=== PATIENT | male | born 1990 | race Caucasian/White ===

== ENCOUNTER 2016-12-12 02:05 | Emergency (ER) | payer SELFPAY ==
[2016-12-12 02:09] VITALS: BP 154/92; PULSE 90; O2SAT 96
[2016-12-12] MEDS ORDERED: TORAdol 30 mg Injection IM ONE (02:14)
[2016-12-12] MEDS ORDERED: NORCO 5/325 MG PO ONE (02:15)
[2016-12-12] MEDS ORDERED: KEFLEX 250 MG PO ONE (02:15)
[2016-12-12] MEDS ORDERED: TORAdol 30 mg Injection ONE (02:18)
[2016-12-12] MEDS ORDERED: KEFLEX 500 MG ONE (02:18)
[2016-12-12] MEDS ORDERED: NORCO 5/325 MG ONE (02:19)
--- NOTE | 2016-12-12 02:22 | ERPHSYRPT ---
- History of Present Illness Time Seen by Provider: 12/12/16 02:10 Source: patient Exam Limitations: no limitations Patient Subjective Stated Complaint: pt is co pain from broken top right molar -he has history of dental caries -states tonight he bit down on a peice of chicken and "shattered the tooth" no releif with advil and motrin Triage Nursing Assessment: pt is awake and alert and able to answer questions - is moaning and holding his right face Physician History: FOR THE PAST 3 DAYS PT HAS HAD RIGHT MOLAR PAIN AND FRACTURED THE TOOTH. PT DENIES FEVER, COUGH, SHORTNESS OF AIR. Allergies/Adverse Reactions: No Known Drug Allergies Allergy (Verified 12/12/16 02:13) Home Medications: No Home Meds 1 ea UD 03/09/16 [History] Hx Tetanus, Diphtheria Vaccination/Date Given: No Hx Influenza Vaccination/Date Given: No Hx Pneumococcal Vaccination/Date Given: No - Review of Systems Constitutional: No Fever Ears, Nose, & Throat: Mouth Pain, Mouth Swelling Respiratory: No Dyspnea Abdominal/Gastrointestinal: No Vomiting All Other Systems: Reviewed and Negative - Past Medical History Pertinent Past Medical History: No Neurological History: No Pertinent History ENT History: No Pertinent History Cardiac History: No Pertinent History Respiratory History: No Pertinent History Endocrine Medical History: No Pertinent History Musculoskeletal History: No Pertinent History GI Medical History: No Pertinent History History: No Pertinent History Psycho-Social History: No Pertinent History Male Reproductive Disorders: No Pertinent History Other Medical History: HYDROCELE - Past Surgical History Past Surgical History: Yes Neuro Surgical History: No Pertinent History Cardiac: No Pertinent History Respiratory: No Pertinent History Gastrointestinal: Hernia Repair Genitourinary: No Pertinent History Musculoskeletal: No Pertinent History Male Surgical History: No Pertinent History - Social History Smoking Status: Current every day smoker How long have you smoked: 6yrs Exposure to second hand smoke: Yes Drug Use: marijuana Patient Lives Alone: No Significant Family History: no pertinent family hx - Nursing Vital Signs Nursing Vital Signs: Initial Vital Signs Temperature 97.6 F Temperature Source Oral Pulse Rate 90 Respiratory Rate 22 Blood Pressure [Right Arm] 154/92 Pain Intensity 10 - Physical Exam General Appearance: alert Eye Exam: PERRL/EOMI, eyes nml inspection Ears, Nose, Throat Exam: moist mucous membranes, other (A RIGHT MAXILLARY MOLAR HAS SURROUNDING ERYTHEMATOUS, EDEMATOUS AND TENDER GUM.) Neck Exam: normal inspection Respiratory Exam: lungs clear Cardiovascular Exam: normal heart sounds Gastrointestinal/Abdomen Exam: normal bowel sounds Back Exam: normal range of motion Extremity Exam: No swelling Neurologic Exam: alert, cooperative Skin Exam: warm, dry SpO2 Interpretation: normal SpO2: 96 Oxygen Delivery: Room Air - Course Nursing assessment & vital signs reviewed: Yes - Departure Time of Disposition: 02:22 Departure Disposition: Home Clinical Impression: RIGHT MAXILLARY MOLAR ABSCESS Condition: Fair Critical Care Time: No Instructions: Tooth Abscess Additional Instructions: FOLLOW UP WITH DENTIST LATER TODAY. Prescriptions: Naproxen [Naprosyn] 500 mg PO [id number] PRN #20 tablet PRN Reason: Pain Cephalexin Monohydrate [Keflex] 500 mg PO TID #30 capsule
== END 2016-12-12 02:28 | disposition home or self-care (01) ==
LOC: ED 02:05
DX: K04.7 Periapical abscess without sinus (principal)
CPT/HCPCS: 96372; 99282; J1885

== ENCOUNTER 2017-07-06 04:33 | Emergency (ER) | payer OTHER ==
[2017-07-06] MEDS ORDERED: TORAdol 30 mg Injection IM ONE (04:37)
[2017-07-06] MEDS ORDERED: Rocephin 1000 MG INJ IM ONE (04:37)
[2017-07-06] MEDS ORDERED: NORCO 5/325 MG PO ONE (04:38)
[2017-07-06 04:42] VITALS: BP 136/76; PULSE 95; O2SAT 96
[2017-07-06] MEDS ORDERED: TORAdol 30 mg Injection ONE (04:43)
[2017-07-06] MEDS ORDERED: NORCO 5/325 MG ONE (04:44)
[2017-07-06] MEDS ORDERED: Rocephin 1000 MG INJ ONE (04:44)
[2017-07-06] MEDS ORDERED: XYLOCAINE 1% HCL 20 ML MDV ONE (04:44)
--- NOTE | 2017-07-06 04:44 | ERPHSYRPT ---
- History of Present Illness Time Seen by Provider: 07/06/17 04:33 Source: patient Exam Limitations: no limitations Physician History: FOR THE PAST WEEK PT HAS HAD A RIGHT UPPER TOOTHACHE AND RIGHT FACIAL SWELLING; FOR THE PAST 3 DAYS DIARRHEA; VOMITING X1 TONIGHT. PT DENIES FEVER, CHEST PAIN, SHORTNESS OF AIR. Allergies/Adverse Reactions: No Known Drug Allergies Allergy (Verified 12/12/16 02:13) Home Medications: No Home Meds [No Home Meds] 1 ea UD 03/09/16 [History] Hx Tetanus, Diphtheria Vaccination/Date Given: No Hx Influenza Vaccination/Date Given: No Hx Pneumococcal Vaccination/Date Given: No - Review of Systems Constitutional: No Fever Ears, Nose, & Throat: Mouth Pain Respiratory: No Dyspnea Cardiac: No Chest Pain Abdominal/Gastrointestinal: Vomiting, Diarrhea All Other Systems: Reviewed and Negative - Past Medical History Pertinent Past Medical History: No Neurological History: No Pertinent History ENT History: No Pertinent History Cardiac History: No Pertinent History Respiratory History: No Pertinent History Endocrine Medical History: No Pertinent History Musculoskeletal History: No Pertinent History GI Medical History: No Pertinent History History: No Pertinent History Psycho-Social History: No Pertinent History Male Reproductive Disorders: No Pertinent History Other Medical History: HYDROCELE - Past Surgical History Past Surgical History: Yes Neuro Surgical History: No Pertinent History Cardiac: No Pertinent History Respiratory: No Pertinent History Gastrointestinal: Hernia Repair Genitourinary: No Pertinent History Musculoskeletal: No Pertinent History Male Surgical History: No Pertinent History - Social History Smoking Status: Current every day smoker How long have you smoked: 6yrs Exposure to second hand smoke: Yes Drug Use: marijuana Patient Lives Alone: No Significant Family History: no pertinent family hx - Physical Exam General Appearance: alert Eye Exam: bilateral eye: PERRL, EOMI Ear Exam: bilateral ear: TM normal Nasal Exam: normal inspection Throat Exam: maxillary swelling (MILD SWELLING, TENDERNESS AND ERYTHEMA OF THE GUM SURROUNDING A RIGHT MAXILLARY MOLAR.), moist mucus membranes Neck Exam: normal inspection Cardiovascular/Respiratory Exam: normal breath sounds, heart sounds normal Abdominal Exam: soft (B.S. NORMAL) Neurologic Exam: alert, cooperative Skin Exam: warm, dry - Course Nursing assessment & vital signs reviewed: Yes - Departure Time of Disposition: 04:44 Departure Disposition: Home Clinical Impression: TOOTH ABSCESS Condition: Stable Critical Care Time: No Referrals: DOCTOR,NO FAMILY [Primary Care Provider] - Instructions: Tooth Abscess Additional Instructions: FOLLOW UP WITH DENTIST TOMORROW. Prescriptions: Naproxen [Naprosyn] 500 mg PO [id number] PRN #20 tablet PRN Reason: Pain Cephalexin Monohydrate [Keflex] 500 mg PO TID #30 capsule
== END 2017-07-06 05:10 | disposition home or self-care (01) ==
LOC: ED 04:33
DX: K04.7 Periapical abscess without sinus (principal)
CPT/HCPCS: 96372; 99284; J0696; J1885; A9270-GY

== ENCOUNTER 2018-03-12 10:09 | Emergency (ER) | payer OTHER ==
[2018-03-12 10:17] VITALS: O2SAT 98
--- NOTE | 2018-03-12 10:27 | ERPHSYRPT ---
- History of Present Illness Time Seen by Provider: 03/12/18 10:18 Source: patient Exam Limitations: no limitations Patient Subjective Stated Complaint: pt reports having right hand smashed at work-reports severe pain-denies numbness or tinlging Triage Nursing Assessment: pt pink warm and dry-anxious upon arrival-swelling and bruising noted to right hand-radial pulse present-bruising under nail beds noted to all fingers Physician History: Pt states, he accidentally dropped heavy board on his right hand at work prior to driving here. He denies other injury or complaints, he is up to date with Tetanus immunization. Occurred: just prior to arrival Method of Injury: direct blow Quality: constant Severity of Pain-Max: moderate Severity of Pain-Current: moderate Extremities Pain Location: 2nd finger: right, 3rd finger: right, 4th finger: right Modifying Factors: Improves With: nothing Associated Symptoms: none Allergies/Adverse Reactions: No Known Drug Allergies Allergy (Verified 03/12/18 10:17) Home Medications: No Home Meds [No Home Meds] 1 ea UD 03/09/16 [History] Hx Tetanus, Diphtheria Vaccination/Date Given: No Hx Influenza Vaccination/Date Given: No Hx Pneumococcal Vaccination/Date Given: No Immunizations Up to Date: Yes - Review of Systems Constitutional: No Symptoms Musculoskeletal: Other (pain and swelling of the right 2-3-4th finger end phalanges.) All Other Systems: Reviewed and Negative - Past Medical History Pertinent Past Medical History: No Neurological History: No Pertinent History ENT History: No Pertinent History Cardiac History: No Pertinent History Respiratory History: No Pertinent History Endocrine Medical History: No Pertinent History Musculoskeletal History: No Pertinent History GI Medical History: No Pertinent History History: No Pertinent History Psycho-Social History: No Pertinent History Male Reproductive Disorders: No Pertinent History Other Medical History: HYDROCELE - Past Surgical History Past Surgical History: Yes Neuro Surgical History: No Pertinent History Cardiac: No Pertinent History Respiratory: No Pertinent History Gastrointestinal: Hernia Repair Genitourinary: No Pertinent History Musculoskeletal: No Pertinent History Male Surgical History: No Pertinent History - Social History Smoking Status: Current some day smoker How long have you smoked: yrs Exposure to second hand smoke: Yes Drug Use: none Patient Lives Alone: No Significant Family History: no pertinent family hx - Nursing Vital Signs Nursing Vital Signs: Initial Vital Signs Temperature 97.8 F 03/12/18 10:14 Pulse Rate 89 04/23/18 10:14 Respiratory Rate 18 03/12/18 10:14 Blood Pressure 135/94 03/12/18 10:14 O2 Sat by Pulse Oximetry 98 03/12/18 10:14 Pain Scale Pain Intensity 5 - Physical Exam General Appearance: no apparent distress Eyes, Ears, Nose, Throat Exam: normal ENT inspection Neck Exam: normal inspection Cardiovascular/Respiratory Exam: chest non-tender, normal breath sounds, regular rate/rhythm Abdominal Exam: non-tender Back Exam: normal inspection Shoulder Exam: normal inspection Hand Exam: soft tissue tenderness (2-3-4th finges nail beds with small, proximal , old subungual hematomas ( old injury), slight, diffse swelling and tenderness of the end phalanges of these fingers, small (2-3 mm) blow-out laceration on the radial aspect of the 4th finger end phalanx. Good distal circulation and capillary refills.) Neuro/Tendon Exam: normal sensation, normal motor functions Mental Status Exam: alert, oriented x 3 Skin Exam: normal color, warm, dry SpO2 Interpretation: normal SpO2: 98 Oxygen Delivery: Room Air - Course Nursing assessment & vital signs reviewed: Yes - Radiology Exams Hand X-ray Interpretation: Reviewed by me, Negative Ordered Tests: Active Orders 24 hr Category Date Time Status HAND (MINIMUM 3 VIEWS) Stat Exams 03/12/18 10:21 Completed - Progress Progress: unchanged Progress Note: 03/12/18 10:57 Pt has been stable, no severe pain or distress, he was administered 400mg Motrin , released back to work, advised to protect fingers, keep elevated, when resting , and return if severe pain or swelling. Counseled pt/family regarding: diagnosis, rad results - Departure Time of Disposition: 10:58 Departure Disposition: Home Clinical Impression: Contusion of hand, right Qualifiers: Encounter type: initial encounter Qualified Code(s): S60.221A - Contusion of right hand, initial encounter Condition: Stable Critical Care Time: No Referrals: DOCTOR,NO FAMILY [Primary Care Provider] - Instructions: Common Finger Injuries Additional Instructions: Keep hand elevated, when resting, apply ice to swelling, return if severe pain, swelling!
--- NOTE | 2018-03-12 10:44 | XRAY ---
Indication: 3-5 finger pain following injury. Comparison: April 12, 2015. 3 views of the right hand obtained. Again no bony, articular, or soft tissue abnormalities.
[2018-03-12] MEDS ORDERED: MOTRIN 400 MG PO ONE (10:56)
[2018-03-12] MEDS ORDERED: MOTRIN 400 MG ONE (11:00)
[2018-03-12 11:06] VITALS: BP 118/67; PULSE 84
== END 2018-03-12 11:06 | disposition home or self-care (01) ==
LOC: ED 10:09
DX: S60.221A Contusion of right hand, initial encounter (principal); W20.8XXA Other cause of strike by thrown, projected or falling object, initial encounter; Y99.0 Civilian activity done for income or pay
CPT/HCPCS: 73130; 99283; A9270-GY

== ENCOUNTER 2018-03-14 10:57 | Emergency (ER) | payer OTHER ==
[2018-03-14 11:06] VITALS: O2SAT 98
--- NOTE | 2018-03-14 11:20 | ERPHSYRPT ---
- History of Present Illness Time Seen by Provider: 03/14/18 11:11 Source: patient Exam Limitations: no limitations Patient Subjective Stated Complaint: Pt states "I smashed my finger with wood at work. Just file it under my insurance, not workmans comp." Triage Nursing Assessment: Pt alert and oriented X 3, skin pwd Pt ambulates with an upright steady gait, able to speak in clear full sentences. PT fingernails on right hand has dried blood under them, index, middle, and ring fingers swollen. Pt states he injured same hand a couple of days ago at work as well. Physician History: Pt states, he "smashed" his right ring finger with a board at work this morning. He had very similar injury 2 days ago, treated here, did not have any fractures, and sustained a small, superficial laceration on the medial aspect on his right ring finger on the end phalanx. He denies other injury or complaints. Occurred: just prior to arrival Method of Injury: direct blow Quality: constant Severity of Pain-Max: moderate Severity of Pain-Current: moderate Extremities Pain Location: 4th finger: right Modifying Factors: Improves With: movement Associated Symptoms: none Allergies/Adverse Reactions: No Known Drug Allergies Allergy (Verified 03/12/18 10:17) Home Medications: No Home Meds [No Home Meds] 1 ea UD 03/09/16 [History] Hx Tetanus, Diphtheria Vaccination/Date Given: Yes Hx Influenza Vaccination/Date Given: No Hx Pneumococcal Vaccination/Date Given: No Immunizations Up to Date: Yes - Review of Systems Constitutional: No Symptoms Musculoskeletal: Other (right ring finger painful) All Other Systems: Reviewed and Negative - Past Medical History Pertinent Past Medical History: No Neurological History: No Pertinent History ENT History: No Pertinent History Cardiac History: No Pertinent History Respiratory History: No Pertinent History Endocrine Medical History: No Pertinent History Musculoskeletal History: No Pertinent History GI Medical History: No Pertinent History History: No Pertinent History Psycho-Social History: No Pertinent History Male Reproductive Disorders: No Pertinent History Other Medical History: HYDROCELE - Past Surgical History Past Surgical History: Yes Neuro Surgical History: No Pertinent History Cardiac: No Pertinent History Respiratory: No Pertinent History Gastrointestinal: Hernia Repair Genitourinary: No Pertinent History Musculoskeletal: No Pertinent History Male Surgical History: No Pertinent History - Social History Smoking Status: Current every day smoker How long have you smoked: years Exposure to second hand smoke: Yes Drug Use: none Patient Lives Alone: No Significant Family History: no pertinent family hx - Nursing Vital Signs Nursing Vital Signs: Initial Vital Signs Temperature 97.8 F 03/14/18 11:01 Pulse Rate 88 03/14/18 11:01 Respiratory Rate 18 03/14/18 11:01 Blood Pressure 137/73 03/14/18 11:01 O2 Sat by Pulse Oximetry 98 03/14/18 11:01 Pain Scale Pain Intensity 10 - Physical Exam General Appearance: no apparent distress Eyes, Ears, Nose, Throat Exam: normal ENT inspection Neck Exam: normal inspection, non-tender Cardiovascular/Respiratory Exam: chest non-tender, normal breath sounds, regular rate/rhythm, heart sounds normal Abdominal Exam: non-tender, soft Back Exam: normal inspection, No CVA tenderness Shoulder Exam: normal inspection Hand Exam: soft tissue tenderness (right long fingers with old subungual hematomas, no elevaton or serious nailbed injury, small (5 mm) superficial laceration on the radial aspect of the 4th finger end phalanx is healing, the end phalanx is swollen, tender, but no deformity. apparently he smashed here today with the board. ), swelling Neuro/Tendon Exam: normal motor functions Mental Status Exam: alert, oriented x 3, cooperative Skin Exam: normal color, warm, dry SpO2 Interpretation: normal SpO2: 98 Oxygen Delivery: Room Air - Course Nursing assessment & vital signs reviewed: Yes - Radiology Exams Hand X-ray Interpretation: Reviewed by me, No Fracture, Nml Alignment Ordered Tests: Active Orders 24 hr Category Date Time Status FINGER(S) Stat Exams 03/14/18 11:21 Completed - Progress Progress: unchanged Progress Note: 03/14/18 11:44 I informed patient about X ray report, instructed to rest today, keep his hand elevated, and apply ice onto swelling! - Departure Time of Disposition: 11:45 Departure Disposition: Home Clinical Impression: Finger contusion Qualifiers: Encounter type: initial encounter Finger: ring finger Damage to nail status: without damage Laterality: right Qualified Code(s): S60.041A - Contusion of right ring finger without damage to nail, initial encounter Condition: Stable Critical Care Time: No Referrals: DOCTOR,NO FAMILY [Primary Care Provider] - Instructions: Finger Sprain (DC) Additional Instructions: Rest with elevated hand, apply ice to swelling!
--- NOTE | 2018-03-14 11:30 | XRAY ---
Indication: Crush injury. Comparison: None 3 views of the right 4th finger obtained. No bony, articular, or soft tissue abnormalities.
[2018-03-14 11:50] VITALS: BP 132/76; PULSE 82
== END 2018-03-14 11:50 | disposition home or self-care (01) ==
LOC: ED 10:57
DX: S60.041A Contusion of right ring finger without damage to nail, initial encounter (principal); W23.0XXA Caught, crushed, jammed, or pinched between moving objects, initial encounter
CPT/HCPCS: 73140; 99283

== ENCOUNTER 2018-04-15 10:01 | Emergency (ER) | payer OTHER ==
[2018-04-15] MEDS ORDERED: MOTRIN 600 MG PO ONE (10:55)
--- NOTE | 2018-04-15 11:02 | ERPHSYRPT ---
- History of Present Illness Time Seen by Provider: 04/15/18 10:55 Source: patient Exam Limitations: no limitations Patient Subjective Stated Complaint: PT HERE FOR TOOTH ACHE AND SWELLING TO LOWER RIGHT GUM FOR A COUPLE DAYS, HAS APT WED WITH DENTIST Triage Nursing Assessment: PT HAS DENTAL CARIES AND SWELLING TO LOWER RIGHT GUM Physician History: patient with toothache and swelling right lower few days; prior hx; no fever; no difficulty breathing or swallowing; no trauma; has an appt with DDS next week Timing/Duration: day(s) (2-3 days onset) Severity: moderate Modifying Factors: Improves With: eating, movement Associated Symptoms: denies symptoms Allergies/Adverse Reactions: No Known Drug Allergies Allergy (Verified 04/15/18 10:45) Home Medications: No Home Meds [No Home Meds] 1 [facility] 03/09/16 [History] Hx Tetanus, Diphtheria Vaccination/Date Given: Yes Hx Influenza Vaccination/Date Given: Yes Hx Pneumococcal Vaccination/Date Given: No Immunizations Up to Date: Yes - Review of Systems Constitutional: No Symptoms Eyes: No Symptoms Ears, Nose, & Throat: Mouth Pain (lower right tooth), Mouth Swelling (lower right), No Ear Pain, No Nose Discharge, No Epistaxis, No Throat Swelling, No Hoarse, No Painful Swallowing Respiratory: No Cough, No Dyspnea, No Wheezing Cardiac: No Chest Pain, No Edema, No Palpitations Abdominal/Gastrointestinal: Nausea, No Abdominal Pain, No Vomiting, No Diarrhea Genitourinary Symptoms: No Symptoms Musculoskeletal: No Symptoms Skin: No Symptoms Neurological: No Symptoms Psychological: No Symptoms - Past Medical History Pertinent Past Medical History: No Neurological History: No Pertinent History ENT History: No Pertinent History Cardiac History: No Pertinent History Respiratory History: No Pertinent History Endocrine Medical History: No Pertinent History Musculoskeletal History: No Pertinent History GI Medical History: No Pertinent History History: No Pertinent History Psycho-Social History: No Pertinent History Male Reproductive Disorders: No Pertinent History Other Medical History: HYDROCELE - Past Surgical History Past Surgical History: Yes Neuro Surgical History: No Pertinent History Cardiac: No Pertinent History Respiratory: No Pertinent History Gastrointestinal: Hernia Repair Genitourinary: No Pertinent History Musculoskeletal: No Pertinent History Male Surgical History: No Pertinent History - Social History Smoking Status: Current every day smoker How long have you smoked: years Exposure to second hand smoke: Yes Alcohol Use: Socially Drug Use: none Patient Lives Alone: No Significant Family History: no pertinent family hx - Nursing Vital Signs Nursing Vital Signs: Initial Vital Signs Temperature 97.2 F 04/15/18 10:39 Pulse Rate 69 04/15/18 10:39 Respiratory Rate 16 04/15/18 10:39 Blood Pressure 134/78 04/15/18 10:39 O2 Sat by Pulse Oximetry 95 04/15/18 10:39 Pain Scale Pain Intensity 8 - Physical Exam General Appearance: moderate distress, alert Eye Exam: PERRL/EOMI, eyes nml inspection Ears, Nose, Throat Exam: normal ENT inspection, TMs normal, pharynx normal, moist mucous membranes, other (caries lowr right post; slight swelling gum; tongue midline; no elevation; TMJ ok) Neck Exam: normal inspection, non-tender, supple, full range of motion, lymphadenopathy (ant cervical right only), No meningismus Respiratory Exam: normal breath sounds, lungs clear, airway intact, No chest tenderness, No respiratory distress Cardiovascular Exam: regular rate/rhythm, normal heart sounds, normal peripheral pulses, capillary refill <2 sec, No murmur Gastrointestinal/Abdomen Exam: soft, normal bowel sounds, No tenderness, No guarding, No organomegaly Rectal Exam: deferred Back Exam: normal inspection, normal range of motion, No CVA tenderness Extremity Exam: normal inspection, normal range of motion, No pedal edema Neurologic Exam: alert, oriented x 3, cooperative, marble polisher II-XII nml as tested, nml station & gait Skin Exam: normal color, warm, dry, No rash Lymphatic Exam: adenopathy (ant cervical right only) SpO2 Interpretation: normal SpO2: 95 Oxygen Delivery: Room Air - Course Nursing assessment & vital signs reviewed: Yes Ordered Tests: Medication Summary Generic Name Dose Route Start Last Admin Trade Name Freq PRN Reason Stop Dose Admin Ibuprofen 600 mg 04/15/18 10:55 Motrin 600 Mg PO 04/15/18 10:56 STAT ONE - Progress Progress Note: 04/15/18 10:59 meds given; instrcutions given Counseled pt/family regarding: diagnosis, need for follow-up - Departure Time of Disposition: 11:15 Departure Disposition: Home Clinical Impression: Dental caries Condition: Stable Critical Care Time: No Referrals: DOCTOR,NO FAMILY [Primary Care Provider] - Instructions: Dental Pain Additional Instructions: Follow-up with family doctor as directed. Call for appointment. Return if any problems. If you smoke please stop. Call or follow up with your family doctor for assistance if you need it to stop. Please wear your seatbelt when driving. Have a nice day. Thank you for allowing us to participate in your care today. :o) Dr Erich Hinds Prescriptions: Cephalexin Mh 250 mg [Keflex 250 mg] 250 mg PO QID #40 capsule Naproxen Sodium [Anaprox Ds] 550 mg PO Q6-8HPRN PRN #14 tablet PRN Reason: Pain
[2018-04-15] MEDS ORDERED: MOTRIN 600 MG ONE (11:04)
[2018-04-15 11:23] VITALS: BP 124/93; PULSE 80; O2SAT 99
== END 2018-04-15 11:23 | disposition home or self-care (01) ==
LOC: ED 10:01
DX: K02.9 Dental caries, unspecified (principal)
CPT/HCPCS: 99283; A9270-GY

== ENCOUNTER 2018-09-19 08:27 | Emergency (ER) | payer OTHER ==
[2018-09-19] MEDS ORDERED: Adacel Vial IM ONE ×2 (08:35→09:15)
[2018-09-19] MEDS ORDERED: KEFZOL 1 GM/50 ML PREMIX** 1 GM/50 ML IVPB IV ONE (08:36)
[2018-09-19] MEDS ORDERED: TENIVAC VIAL IM ONE ×2 (08:36→08:44)
[2018-09-19 08:38] VITALS: O2SAT 98
[2018-09-19] MEDS ORDERED: MORPHINE SULFATE 2 MG INJ IM ONE (08:40)
[2018-09-19] MEDS ORDERED: MORPHINE SULFATE 2 MG INJ ONE (08:43)
[2018-09-19] MEDS ORDERED: Ativan 2 MG/1 ML VIAL IM ONE (08:45)
[2018-09-19] MEDS ORDERED: Ativan 2 MG/1 ML VIAL ONE (08:46)
--- NOTE | 2018-09-19 08:53 | ERPHSYRPT ---
- History of Present Illness Source: patient Exam Limitations: no limitations Patient Subjective Stated Complaint: Pt states "I was at work and my glove got caught in a conveyer and pulled my hand under a board and smashed it." Triage Nursing Assessment: Pt alert and oriented X 3, skin pwd. Pt ambulates with an upright steady gait, able to speak in clear full sentences. PT holding his right hand in his left. Middle finger on right hand has laceration down the tip approx 2 cm, bleeding controlled. Timing/Duration: today Quality: burning, painful Severity: severe Location: hands (middle right finger) Associated Symptoms: other (Severe pain in the tip of the middle right finger, with bleeding, and trauma.) Allergies/Adverse Reactions: No Known Drug Allergies Allergy (Verified 04/15/18 10:45) Home Medications: No Home Meds [No Home Meds] 1 [facility] 03/09/16 [History] Hx Tetanus, Diphtheria Vaccination/Date Given: Yes Hx Influenza Vaccination/Date Given: No Hx Pneumococcal Vaccination/Date Given: No Immunizations Up to Date: Yes - Review of Systems Constitutional: No Fever, No Chills Eyes: No Symptoms Ears, Nose, & Throat: No Symptoms Respiratory: No Cough, No Dyspnea Cardiac: No Chest Pain, No Edema, No Syncope Abdominal/Gastrointestinal: No Abdominal Pain, No Nausea, No Vomiting, No Diarrhea Genitourinary Symptoms: No Dysuria Musculoskeletal: Other (Pain in middle finger on right) Skin: Other (tip of middle finger on right with bleeding) Neurological: No Dizziness, No Focal Weakness, No Sensory Changes Psychological: No Symptoms Endocrine: No Symptoms All Other Systems: Reviewed and Negative - Past Medical History Pertinent Past Medical History: No Neurological History: No Pertinent History ENT History: No Pertinent History Cardiac History: No Pertinent History Respiratory History: No Pertinent History Endocrine Medical History: No Pertinent History Musculoskeletal History: No Pertinent History GI Medical History: No Pertinent History History: No Pertinent History Psycho-Social History: No Pertinent History Male Reproductive Disorders: No Pertinent History Other Medical History: HYDROCELE - Past Surgical History Past Surgical History: Yes Neuro Surgical History: No Pertinent History Cardiac: No Pertinent History Respiratory: No Pertinent History Gastrointestinal: Hernia Repair Genitourinary: No Pertinent History Musculoskeletal: No Pertinent History Male Surgical History: No Pertinent History - Social History Smoking Status: Current every day smoker How long have you smoked: years Exposure to second hand smoke: Yes Alcohol Use: Socially Drug Use: none Patient Lives Alone: No Significant Family History: no pertinent family hx - Nursing Vital Signs Nursing Vital Signs: Initial Vital Signs Temperature 98.2 F 09/19/18 08:29 Pulse Rate 124 H 09/19/18 08:29 Respiratory Rate 24 09/19/18 08:29 Blood Pressure 155/103 09/19/18 08:29 O2 Sat by Pulse Oximetry 98 09/19/18 08:29 Pain Scale Pain Intensity 10 - Physical Exam General Appearance: severe distress, alert Eye Exam: PERRL/EOMI, eyes nml inspection Ears, Nose, Throat Exam: normal ENT inspection, pharynx normal, moist mucous membranes Neck Exam: normal inspection, non-tender, supple, full range of motion Respiratory Exam: normal breath sounds, lungs clear, No respiratory distress Cardiovascular Exam: regular rate/rhythm, normal heart sounds Gastrointestinal/Abdomen Exam: soft, mass, No tenderness Back Exam: normal inspection, normal range of motion, No CVA tenderness, No vertebral tenderness Extremity Exam: lacerations (tissue of R middle finger is mangled, bleeding from tissue and under the nail.) Neurologic Exam: alert, oriented x 3, cooperative, normal mood/affect, sensation nml, No motor deficits Skin Exam: laceration (As described in extremities exam) SpO2: 98 Oxygen Delivery: Room Air Procedures - Laceration/Wound Repair Right Upper Finger Wound Location: Right, hand (and tissue of middle finger is mangled.) Wound's Depth, Shape: nail-avulsed Wound Explored: no foreign body noted Irrigated: Yes Hibiclens Prep: Yes Wound Debrided: minimal Sterile Dressing Applied?: Yes Ordered Tests: Active Orders 24 hr Category Date Time Status Wound Care STAT Care 09/19/18 08:36 Active Alcohol [ETHYL ALCOHOL] Stat Lab 09/19/18 09:00 Completed Urine Triage Profile Stat Lab 09/19/18 08:53 Completed Medication Summary Discontinued Medications Generic Name Dose Route Start Last Admin Trade Name Freq PRN Reason Stop Dose Admin Cefazolin Sodium Confirm 09/19/18 09:08 Kefzol 1 Gm Administered 09/19/18 09:09 Dose 1 g .ROUTE .STK-MED ONE Cefazolin Sodium 1 g 09/19/18 09:13 09/19/18 09:19 Kefzol 1 Gm IM 09/19/18 09:14 1 g STAT ONE Administration Diphtheria/Tetanus/Acell Pertussis 0.5 ml 09/19/18 09:15 09/19/18 09:18 Adacel Vial IM 09/19/18 09:16 0.5 ml .ONCE ONE Administration Cefazolin Sodium/Dextrose 1 gm in 50 mls @ 100 mls/hr 09/19/18 08:36 09:15 Kefzol 1 Gm/50 Ml Premix IV 09/19/18 09:05 Not Given STAT ONE Lorazepam 2 mg 09/19/18 08:45 09/19/18 08:47 Ativan 2 Mg/1 Ml Vial IM 09/19/18 08:46 2 mg STAT ONE Administration Lorazepam Confirm 09/19/18 08:46 Ativan 2 Mg/1 Ml Vial Administered 09/19/18 08:47 Dose 2 mg .ROUTE .STK-MED ONE Morphine Sulfate 2 mg 09/19/18 08:40 09/19/18 08:47 Morphine Sulfate 2 Mg Inj IM 09/19/18 08:41 2 mg STAT ONE Administration Morphine Sulfate Confirm 09/19/18 08:43 Morphine Sulfate 2 Mg Inj Administered 09/19/18 08:44 Dose 2 mg .ROUTE .STK-MED ONE Lab/Rad Data: Laboratory Results 09/19/18 09/19/18 Range/Units 09:00 08:53 Urine Opiates Level NEGATIVE (NEGATIVE) Ur Methadone NEGATIVE (NEGATIVE) Urine Barbiturates NEGATIVE (NEGATIVE) Ur Phencyclidine (PCP) NEGATIVE (NEGATIVE) Urine Amphetamine NEGATIVE (NEGATIVE) U Benzodiazepine Level NEGATIVE (NEGATIVE) Urine Cocaine NEGATIVE (NEGATIVE) Urine Marijuana (THC) POSITIVE (NEGATIVE) Ethyl Alcohol < 10 (0-10) mg/dL - Progress Progress: unchanged Will see patient in: office Counseled pt/family regarding: need for follow-up (Follow up with Hand specialist Dr Zuleta in the office. Info and phone number was given to the pt. ) - Departure Time of Disposition: 10:17 Departure Disposition: Home Clinical Impression: Finger contusion Condition: Stable Critical Care Time: No Referrals: DOCTOR,NO FAMILY [Primary Care Provider] - Prescriptions: Hydrocodone Bit/Acetaminophen [Hydrocodon-Acetaminophen 5-325] 1 tab PO Q4- 6HPRN PRN #20 tablet MDD 6 PRN Reason: Moderate To Severe Pain
[2018-09-19] MEDS ORDERED: KEFZOL 1 GM ONE (09:08)
[2018-09-19 09:11] LABS: Amphetamine,Urine NEGATIVE (NEGATIVE); Barbiturate,Urine NEGATIVE (NEGATIVE); Benzodiazepine,Urine NEGATIVE (NEGATIVE); Cocaine,Urine NEGATIVE (NEGATIVE); Methadone,Urine NEGATIVE (NEGATIVE); Opiate,Urine NEGATIVE (NEGATIVE); PCP,Urine NEGATIVE (NEGATIVE); THC,Urine POSITIVE (NEGATIVE)
[2018-09-19] MEDS ORDERED: KEFZOL 1 GM IM ONE (09:13)
[2018-09-19 10:41] VITALS: BP 148/88; PULSE 98
== END 2018-09-19 10:47 | disposition home or self-care (01) ==
LOC: ED 08:27
PROC: 0JDJ3ZZ Extraction of Right Hand Subcutaneous Tissue and Fascia, Percutaneous Approach (ICD-10-PCS; principal; 2018-09-19)
DX: S60.031A Contusion of right middle finger without damage to nail, initial encounter (principal); W31.89XA Contact with other specified machinery, initial encounter; Y93.89 Activity, other specified; Y92.69 Other specified industrial and construction area as the place of occurrence of the external cause; Y99.0 Civilian activity done for income or pay; M79.644 Pain in right finger(s); Z72.0 Tobacco use; S61.302A Unspecified open wound of right middle finger with damage to nail, initial encounter
CPT/HCPCS: 11042; 36415; 80307; 90471; 90714; 90715; 96372; 99284; J0690; J2060; J2270; G0480

== ENCOUNTER 2018-11-22 12:15 | Emergency (ER) | payer MEDICAID, OTHER ==
--- NOTE | 2018-11-22 12:35 | ERPHSYRPT ---
- History of Present Illness Time Seen by Provider: 11/22/18 12:30 Source: patient Exam Limitations: no limitations Physician History: The patient is a 28-year-old male with a history of poor dentition complains of worsening left upper jaw pain for 2 days. Last night an abscess develop he popped. It is hurting. He comes in requesting antibiotics. He states that his life has been hectic the last 2 weeks and it culminated with the of his fourth child last night. He has a dentist in [place] but has not been able to contact the dentist yet. Timing/Duration: gradual onset, days (2) Severity: moderate ENT Location: dental Prearrival Treatment: no prearrival treatment Modifying Factors: Improves With: nothing Associated Symptoms: jaw pain, tooth pain Allergies/Adverse Reactions: No Known Drug Allergies Allergy (Verified 11/22/18 12:30) Hx Tetanus, Diphtheria Vaccination/Date Given: Yes Hx Influenza Vaccination/Date Given: No Hx Pneumococcal Vaccination/Date Given: No - Review of Systems Constitutional: No Symptoms Eyes: No Symptoms Ears, Nose, & Throat: Other (dental abscess) Respiratory: No Cough, No Dyspnea Cardiac: No Chest Pain, No Edema, No Syncope Abdominal/Gastrointestinal: No Abdominal Pain, No Nausea, No Vomiting, No Diarrhea Genitourinary Symptoms: No Dysuria Musculoskeletal: No Back Pain, No Neck Pain Skin: No Rash Neurological: No Dizziness, No Focal Weakness, No Sensory Changes Psychological: No Symptoms Endocrine: No Symptoms Hematologic/Lymphatic: No Symptoms Immunological/Allergic: No Symptoms All Other Systems: Reviewed and Negative - Past Medical History Pertinent Past Medical History: No Neurological History: No Pertinent History ENT History: No Pertinent History Cardiac History: No Pertinent History Respiratory History: No Pertinent History Endocrine Medical History: No Pertinent History Musculoskeletal History: No Pertinent History GI Medical History: No Pertinent History History: No Pertinent History Psycho-Social History: No Pertinent History Male Reproductive Disorders: No Pertinent History Other Medical History: HYDROCELE - Past Surgical History Past Surgical History: Yes Neuro Surgical History: No Pertinent History Cardiac: No Pertinent History Respiratory: No Pertinent History Gastrointestinal: Hernia Repair Genitourinary: No Pertinent History Musculoskeletal: No Pertinent History Male Surgical History: No Pertinent History - Social History Smoking Status: Current every day smoker How long have you smoked: years Exposure to second hand smoke: Yes Alcohol Use: Socially Drug Use: none Patient Lives Alone: No Significant Family History: no pertinent family hx - Physical Exam General Appearance: no apparent distress, alert Eye Exam: bilateral eye: PERRL Ear Exam: bilateral ear: auricle normal Nasal Exam: normal inspection Throat Exam: maxillary swelling (left gum swelling with abscess) Neck Exam: supple Cardiovascular/Respiratory Exam: normal breath sounds, regular rate/rhythm Abdominal Exam: non-tender, soft Neurologic Exam: alert, oriented x 3, sensation nml, No motor deficits Skin Exam: normal color, warm, dry SpO2 Interpretation: normal Oxygen Delivery: Room Air - Departure Time of Disposition: 12:39 Departure Disposition: Home Clinical Impression: Dental abscess Condition: Stable Critical Care Time: No Additional Instructions: You have a dental abscess. You were given Toradol 60 mg by IM in the ER. Take penicillin 500 mg 4 times a day for 10 days. Follow-up with your dentist next week. Prescriptions: Penicillin V Potassium 500 mg PO QID #40 tablet
[2018-11-22] MEDS ORDERED: TORAdol 30 mg Injection IM ONE (12:39)
[2018-11-22] MEDS ORDERED: TORAdol 30 mg Injection ONE (12:44)
[2018-11-22 13:12] VITALS: BP 120/78; PULSE 70; O2SAT 98
== END 2018-11-22 13:12 | disposition home or self-care (01) ==
LOC: ED 12:15
DX: K04.7 Periapical abscess without sinus (principal)
CPT/HCPCS: 96372; 99283; J1885

== ENCOUNTER 2019-01-31 13:10 | Emergency (ER) | payer MEDICAID ==
[2019-01-31] MEDS ORDERED: Fluor-I-Strip/Ful-Flo OP ONE ×2 (13:35→13:41)
[2019-01-31] MEDS ORDERED: Eye-Stream Solution OP ONE (13:35)
--- NOTE | 2019-01-31 13:40 | ERPHSYRPT ---
- History of Present Illness Time Seen by Provider: 01/31/19 13:30 Source: patient Exam Limitations: no limitations Patient Subjective Stated Complaint: STATES WAS CUTTING WOOD A WEEK AGO AND STATES HE THINKS THERE MIGHT BE SOMETHING IN EYE Triage Nursing Assessment: PT EYE IS RED,TEARING, AND PHOTO SENSITIVE, Physician History: 28-year-old white male arrives with complaint of pain in right eye redness of the right eyes blurry vision of the right eye symptoms for a week. According the patient he was running a chain saw had a piece of wood come up underneath his safety glasses and striking in the right eye he has the above noted symptoms. Past medical history includes hernia repair. Past surgical history includes hernia repair. Social history includes tobacco use in 6-12 beers a day. Timing/Duration: week(s) (one week) Location: right eye Severity: moderate Apparent Injury: possibly Associated Symptoms: pain, burning, sensitivity to light, redness, foreign body sensation, blurred vision, No eyelid swelling, No decreased vision, No double vision Visual Assistive Devices: None Trauma: No Welding Arc/Tanning Bed Exposure: No Allergies/Adverse Reactions: No Known Drug Allergies Allergy (Verified 01/31/19 13:19) Hx Tetanus, Diphtheria Vaccination/Date Given: Yes (2017) Hx Influenza Vaccination/Date Given: Yes Hx Pneumococcal Vaccination/Date Given: No Immunizations Up to Date: Yes - Review of Systems Constitutional: No Fever, No Chills Eyes: Eye Pain, Eye Redness, Vision Changes (blurry vision right eye), Foreign Body Sensation Ears, Nose, & Throat: No Symptoms Respiratory: No Cough, No Dyspnea Cardiac: No Chest Pain, No Edema, No Syncope Abdominal/Gastrointestinal: No Abdominal Pain, No Nausea, No Vomiting, No Diarrhea Genitourinary Symptoms: No Dysuria Musculoskeletal: No Back Pain, No Neck Pain Skin: No Rash Neurological: No Dizziness, No Focal Weakness, No Sensory Changes Psychological: No Symptoms Endocrine: No Symptoms All Other Systems: Reviewed and Negative - Past Medical History Pertinent Past Medical History: No Neurological History: No Pertinent History ENT History: No Pertinent History Cardiac History: No Pertinent History Respiratory History: No Pertinent History Endocrine Medical History: No Pertinent History Musculoskeletal History: No Pertinent History GI Medical History: No Pertinent History History: No Pertinent History Psycho-Social History: No Pertinent History Male Reproductive Disorders: No Pertinent History Other Medical History: HYDROCELE - Past Surgical History Past Surgical History: Yes Neuro Surgical History: No Pertinent History Cardiac: No Pertinent History Respiratory: No Pertinent History Gastrointestinal: Hernia Repair Genitourinary: No Pertinent History Musculoskeletal: No Pertinent History Male Surgical History: No Pertinent History - Social History Smoking Status: Current every day smoker How long have you smoked: years Exposure to second hand smoke: Yes Alcohol Use: Socially Drug Use: none Patient Lives Alone: Yes Significant Family History: no pertinent family hx - Nursing Vital Signs Nursing Vital Signs: Initial Vital Signs Temperature 97.0 F 01/31/19 13:13 Pulse Rate 68 01/31/19 13:13 Respiratory Rate 16 01/31/19 13:13 Blood Pressure 119/78 01/31/19 13:13 O2 Sat by Pulse Oximetry 97 01/31/19 13:13 Pain Scale Pain Intensity 0 - Physical Exam Vision Acuity Right Eye: 20/50 Vision Acuity Left Eye: 20/70 Eye Exam: right eye: conjunctival inflammation, left eye: normal inspection, bilateral eye: PERRL, EOMI Ears, Nose, Throat Exam: normal ENT inspection, No TMs normal, No pharynx normal , No moist mucous membranes, No dry mucous membranes, No TM abnormal (R) (for him), No TM abnormal (L) ( patient was 20/50 on th) Neck Exam: normal inspection, non-tender, supple, full range of motion Respiratory Exam: normal breath sounds, No chest tenderness, No lungs clear, No respiratory distress, No airway intact, No diminished breath sounds, No accessory muscle use, No prolonged expirations, No crackles/rales, No rhonchi, No wheezing, No stridor, No pleural rub Cardiovascular Exam: regular rate/rhythm, normal heart sounds, normal peripheral pulses, capillary refill <2 sec, No murmur, No friction rub, No gallop, No tachycardia, No bradycardia, No irregular Gastrointestinal Exam: soft, normal bowel sounds, tenderness, No distention, No mass, No guarding, No ecchymosis, No pulsatile mass, No rebound, No hernia, No hepatomegaly, No organomegaly Extremity Exam: normal inspection, normal range of motion, pelvis stable, No amputations, No cortes, No contusions, No calf tenderness, No deformities, No lacerations, No penetrations, No parasthesia, No paralysis, No leticia's sign, No inflammation, No joint swelling, No limited range of motion, No pedal edema, No swelling, No tenderness Neurologic: alert, oriented x 3, cooperative, manager orange II-XII nml as tested, normal mood/affect, nml cerebellar function Skin Exam: normal color SpO2 Interpretation: normal (97%) SpO2: 97 Ordered Tests: Active Orders 24 hr Category Date Time Status Visual Acuity STAT Care 01/31/19 13:35 Active Medication Summary Discontinued Medications Generic Name Dose Route Start Last Admin Trade Name Kimberly PRN Reason Stop Dose Admin Ciprofloxacin 2.5 ml 01/31/19 13:48 01/31/19 13:58 Ciloxan Ophth OP 01/31/19 13:49 2.5 ml STAT ONE Administration Eye Irrigation Solution 15 ml 01/31/19 13:35 01/31/19 13:57 Eye-Stream Solution OP 01/31/19 13:36 15 ml STAT ONE Administration Eye Irrigation Solution Confirm 01/31/19 13:41 Eye-Stream Solution Administered 01/31/19 13:42 Dose 30 ml .ROUTE .STK-MED ONE Fluorescein Sodium 1 mg 01/31/19 13:35 01/31/19 13:57 Prgmr-M-Uxyyn/Ful-Michael OP 01/31/19 13:36 1 mg STAT ONE Administration Fluorescein Sodium Confirm 01/31/19 13:41 Iypmz-Q-Dhzrv/Ful-Michael Administered 01/31/19 13:42 Dose 1 mg OP .STK-MED ONE - Progress Progress: improved Progress Note: 01/31/19 13:49 28-year-old white male arrives with complaint of foreign body sensation blurry vision in his right eye and pain in his right eye symptoms for a week. Patient states he was running a chain saw and a piece of wood came up under his safety glasses and struck him in the eye. He's had the above symptoms since. He states his last tetanus is a year ago he does not wear glasses. On physical examination eye exam eyes PERRLA EOMI fundi are unremarkable. Right eye with scleral mild injection. Right eye conjunctiva erythematous. Right eye no foreign bodies are noted. Both globes are soft. Right eye is examined with floor seen staining no corneal abrasions. Right eye examined with magnification no foreign bodies are noted. Both lids are everted on right eye no foreign bodies are noted. Impression 1 contusion right eye. 2 foreign body sensation right eye. 3 conjunctivitis right eye. Plan , Ciloxan drops 1-2 drops right eye 4 times a day 5 days. Small amount of [place] for pain patient denies history of narcotic abuse or problems with substance. Patient is advised to follow-up with his cancer program consultant he states he has an appointment I have told him to contact his cancer program consultant and see if he cannot have this reexamined. Patient return for acute distress or for severe symptoms. - Departure Time of Disposition: 13:52 Departure Disposition: Home Clinical Impression: Pain, eye, right, foreign body sensation right eye Contusion of right eye Qualifiers: Encounter type: initial encounter Qualified Code(s): S05.11XA - Contusion of eyeball and orbital tissues, right eye, initial encounter Conjunctivitis Qualifiers: Conjunctivitis type: acute Acute conjunctivitis type: unspecified Laterality: right Qualified Code(s): H10.31 - Unspecified acute conjunctivitis, right eye Condition: Fair Critical Care Time: No Referrals: DOCTOR,NO FAMILY [Primary Care Provider] - Additional Instructions: Return home. Ciloxan drops 0.3% one to 2 drops right eye 4 times a day for 5 days. [place] as prescribed. Follow-up with your cancer program consultant or farm management agent call and schedule an appointment for 1-2 days sooner if worse. Return for acute distress or for severe symptoms. Prescriptions: Hydrocodone/APAP 5-325 Tab^^^ [[place] 5-325 Tablet^^^] 1 tab PO Q6HPRN PRN #10 tablet MDD 6 PRN Reason: right eye pain Ciprofloxacin 0.3% Ophth [Ciloxan OPHTH] 1 - 2 drops OP QID #2.5 ml
[2019-01-31] MEDS ORDERED: Eye-Stream Solution ONE (13:41)
[2019-01-31] MEDS ORDERED: Ciloxan OPHTH OP ONE (13:48)
[2019-01-31 14:12] VITALS: BP 120/73; PULSE 86; O2SAT 98
== END 2019-01-31 14:12 | disposition home or self-care (01) ==
LOC: ED 13:10
DX: S05.11XA Contusion of eyeball and orbital tissues, right eye, initial encounter (principal); H10.31 Unspecified acute conjunctivitis, right eye; H57.11 Ocular pain, right eye
CPT/HCPCS: 99283; A9270-GY

== ENCOUNTER 2019-03-03 21:45 | Emergency (ER) | payer MEDICAID ==
[2019-03-03] MEDS ORDERED: TORAdol 30 mg Injection IM ONE (22:02)
[2019-03-03] MEDS ORDERED: CLEOCIN 150 MG CAPSULE PO ONE (22:02)
[2019-03-03] MEDS ORDERED: NORCO 5/325 MG PO ONE (22:02)
[2019-03-03] MEDS ORDERED: TORAdol 30 mg Injection ONE (22:06)
[2019-03-03] MEDS ORDERED: CLEOCIN 150 MG CAPSULE ONE (22:06)
--- NOTE | 2019-03-03 22:09 | ERPHSYRPT ---
- History of Present Illness Time Seen by Provider: 03/03/19 21:57 Source: patient Exam Limitations: no limitations Patient Subjective Stated Complaint: pt states he has been having pain from his tooth for over a month, states he was seen at [facility] in late january and was put on pcn. states no improvement with pcn. pt reports he has an appt to have tooth pulled on monday at [facility]. Triage Nursing Assessment: pt alert and oriented. pt ambulatory with steady gait noted. respirations nonlabored with lungs cta. pt restless in bed. decayed tooth noted to rt lower jaw, posterior molar. redness and swelling noted to gums around tooth. Physician History: 28-year-old white male arrives with complaint of pain in his right mandibular molar area symptoms for 3 weeks worse for the past 2 days. He has been seen in the past secondary to this in January was placed on Pen-Vee K he states that he is scheduled to have the tooth removed in several days. He states that for the past 2 days he's had severe pain has been unable to sleep because of the pain. Past medical history includes hydrocele. Past surgical history includes hernia. Social history positive alcohol positive tobacco denies illicit drug use. Timing/Duration: other (3 weeks worse for the past 2 days) Severity: moderate Modifying Factors: Improves With: ibuprofen, nothing Associated Symptoms: other (right mandibular tooth pain and mandibular pain), No nausea, No vomiting, No abdominal pain, No shortness of breath, No heartburn , No diaphoresis, No cough, No chills, No chest pain, No fever, No headaches, No loss of appetite, No malaise, No rash, No syncope, No seizure, No weakness Allergies/Adverse Reactions: No Known Drug Allergies Allergy (Verified 03/03/19 22:00) Hx Tetanus, Diphtheria Vaccination/Date Given: Yes (2017) Hx Influenza Vaccination/Date Given: Yes Hx Pneumococcal Vaccination/Date Given: No Immunizations Up to Date: Yes - Review of Systems Constitutional: No Fever, No Chills Eyes: No Symptoms Ears, Nose, & Throat: Mouth Pain (right mandibular tooth pain and mandibular pain), No Ear Pain, No Ear Discharge, No Hearing Changes, No Tinnitus, No Nose Pain, No Nose Congestion, No Nose Discharge, No Sinus Drainage, No Epistaxis, No Mouth Swelling, No Loose Teeth, No Throat Pain, No Throat Swelling, No Hoarse , No Painful Swallowing, No Snoring, No Stridor Respiratory: No Cough, No Dyspnea Cardiac: No Chest Pain, No Edema, No Syncope Abdominal/Gastrointestinal: No Abdominal Pain, No Nausea, No Vomiting, No Diarrhea Genitourinary Symptoms: No Dysuria Musculoskeletal: No Back Pain, No Neck Pain Skin: No Rash Neurological: No Dizziness, No Focal Weakness, No Sensory Changes Psychological: No Symptoms Endocrine: No Symptoms All Other Systems: Reviewed and Negative - Past Medical History Pertinent Past Medical History: No Neurological History: No Pertinent History ENT History: No Pertinent History Cardiac History: No Pertinent History Respiratory History: No Pertinent History Endocrine Medical History: No Pertinent History Musculoskeletal History: No Pertinent History GI Medical History: No Pertinent History History: No Pertinent History Psycho-Social History: No Pertinent History Male Reproductive Disorders: No Pertinent History Other Medical History: HYDROCELE - Past Surgical History Past Surgical History: Yes Neuro Surgical History: No Pertinent History Cardiac: No Pertinent History Respiratory: No Pertinent History Gastrointestinal: Hernia Repair Genitourinary: No Pertinent History Musculoskeletal: No Pertinent History Male Surgical History: No Pertinent History - Social History Smoking Status: Current every day smoker How long have you smoked: years Exposure to second hand smoke: Yes Alcohol Use: Socially Drug Use: none Patient Lives Alone: Yes Significant Family History: no pertinent family hx - Nursing Vital Signs Nursing Vital Signs: Initial Vital Signs Temperature 97.8 F 03/03/19 21:50 Pulse Rate 88 03/03/19 21:50 Respiratory Rate 18 03/03/19 21:50 Blood Pressure 123/90 03/03/19 21:50 O2 Sat by Pulse Oximetry 98 03/03/19 21:50 Pain Scale Pain Intensity 7 - Physical Exam General Appearance: moderate distress, alert Eye Exam: PERRL/EOMI, eyes nml inspection Ears, Nose, Throat Exam: TMs normal, pharynx normal, moist mucous membranes, other (broken carious tooth right mandibular molar region, tenderness with palpation mandibleadjacent to this tooth), No pharyngeal erythema, No tonsillar exudate Neck Exam: normal inspection, non-tender, supple, full range of motion Respiratory Exam: normal breath sounds, lungs clear, No respiratory distress Cardiovascular Exam: regular rate/rhythm, normal heart sounds, normal peripheral pulses, capillary refill <2 sec Gastrointestinal/Abdomen Exam: soft, normal bowel sounds, No tenderness, No mass Back Exam: normal inspection, normal range of motion, No CVA tenderness, No vertebral tenderness Extremity Exam: normal inspection, normal range of motion, pelvis stable Neurologic Exam: alert, oriented x 3, cooperative, nurse receptionist II-XII nml as tested, normal mood/affect, nml cerebellar function, nml station & gait, sensation nml, No motor deficits Skin Exam: normal color, warm, dry, No rash SpO2 Interpretation: normal (98%) SpO2: 98 - Course Nursing assessment & vital signs reviewed: Yes - Progress Progress: improved Progress Note: 03/03/19 22:06 This is a 28-year-old white male he has a history of a broken carious tooth in the right mandibular region he was seen in this emergency room and November secondary to this he was seen at [facility] secondary to this approximately 3 weeks ago and placed on Pen-Vee K. Patient states he's been having continuing pain in the right mandibular molar region he states that he is unable to go to sleep for the past 2 days secondary to this pain. Patient in [id number] distress. Patient does have a broken carious tooth in the right mandibular molar area with tenderness in the mandible adjacent to this area. I have reviewed the patient's inspect report patient did receive hydrocodone 5/ 325 in January of this year secondary to an eye injury he has received a few additional narcotic analgesia prescriptions over the past year beginning in August. Patient does not appear to be receiving excessive amounts of these and does not have overly frequent presentations. He denies any substance abuse problems. Will go ahead and place patient on clindamycin 300 mg 3 times a day also give patient an injection of Toradol 60 mg IM write for a small amount of [place]. He states that he is scheduled to have the tooth removed in several days. - Departure Departure Disposition: Home Clinical Impression: Dental abscess Dental implant pain Qualifiers: Encounter type: initial encounter Qualified Code(s): T85.848A - Pain due to other internal prosthetic devices, implants and grafts, initial encounter Condition: Fair Critical Care Time: No Referrals: DOCTOR,NO FAMILY [Primary Care Provider] - Additional Instructions: Return home. Clindamycin 300 mg orally 3 times a day for 10 days. Cold packs to area (externaly) 24-48 hours. Avoid excessively hot or cold foods. [place] as prescribed. May also take Advil [id number] every 6 hours as needed for pain. Follow-up with your dentist or clinic. Return for acute distress or for severe symptoms. Prescriptions: Hydrocodone/APAP 5-325 Tab^^^ [[place] 5-325 Tablet^^^] 1 tab PO Q6HPRN PRN #10 tablet MDD 6 PRN Reason: dental pain Clindamycin HCl 300 mg PO TID #30 capsule
[2019-03-03] MEDS ORDERED: NORCO 5/325 MG ONE (22:23)
[2019-03-03 22:31] VITALS: BP 139/90; PULSE 100; O2SAT 99
== END 2019-03-03 22:35 | disposition home or self-care (01) ==
LOC: ED 21:45
DX: K04.7 Periapical abscess without sinus (principal); T85.848A Pain due to other internal prosthetic devices, implants and grafts, initial encounter
CPT/HCPCS: 96372; 99284; J1885; A9270-GY

== ENCOUNTER 2019-04-21 00:11 | Emergency (ER) | payer SELFPAY ==
[2019-04-21] MEDS ORDERED: TORAdol 30 mg Injection IM ONE (00:35)
[2019-04-21] MEDS ORDERED: TORAdol 30 mg Injection ONE (00:39)
--- NOTE | 2019-04-21 00:41 | ERPHSYRPT ---
- History of Present Illness Time Seen by Provider: 04/21/19 00:36 Source: patient Exam Limitations: no limitations Patient Subjective Stated Complaint: pt sttes while playing football today he slid and felt a pop in his rt ankle. states he has increased pain now. Triage Nursing Assessment: pt alert and oriented, asnwers questions approp. pt back per wheelchair and transfers to unc healther per self, nwb on rt foot. pedal pulse and cap refill to rt lower ext wnl. pt reports normal sensation to rle. Physician History: 28-year-old white male arrives with complaint of right lateral ankle and right lateral lower leg pain symptoms since 8:00 this evening. Patient states was playing football with his kids when he twisted his ankle he has pain overlying the right lateral malleolus also pain in the distal half of the right lower leg. Pain is worse with walking He states he felt a pop when he twisted his ankle. Past medical history includes cL Past surgical history includes hernia. Social history occasional alcohol use Method of Injury: twisted (twisted right ankle and felt a pop in his ankle and leg) Occurred: this morning (8:00 this evening) Quality: constant Severity of Pain-Max: moderate Severity of Pain-Current: moderate Lower Extremities Pain: leg: right, ankle: right Modifying Factors: Improves With: movement, other (walking) Associated Symptoms: none, other (felt a pop when the injury occurred.) Allergies/Adverse Reactions: No Known Drug Allergies Allergy (Verified 03/03/19 22:00) Hx Tetanus, Diphtheria Vaccination/Date Given: Yes (2017) Hx Influenza Vaccination/Date Given: Yes Hx Pneumococcal Vaccination/Date Given: No Immunizations Up to Date: Yes - Review of Systems Constitutional: No Fever, No Chills Eyes: No Symptoms Ears, Nose, & Throat: No Symptoms Respiratory: No Cough, No Dyspnea Cardiac: No Chest Pain, No Edema, No Syncope Abdominal/Gastrointestinal: No Abdominal Pain, No Nausea, No Vomiting, No Diarrhea Genitourinary Symptoms: No Dysuria Musculoskeletal: Other (right lower leg and right ankle pain) Skin: No Rash Neurological: No Dizziness, No Focal Weakness, No Sensory Changes Psychological: No Symptoms Endocrine: No Symptoms All Other Systems: Reviewed and Negative - Past Medical History Pertinent Past Medical History: No Neurological History: No Pertinent History ENT History: No Pertinent History Cardiac History: No Pertinent History Respiratory History: No Pertinent History Endocrine Medical History: No Pertinent History Musculoskeletal History: No Pertinent History GI Medical History: No Pertinent History History: No Pertinent History Psycho-Social History: No Pertinent History Male Reproductive Disorders: No Pertinent History Other Medical History: HYDROCELE - Past Surgical History Past Surgical History: Yes Neuro Surgical History: No Pertinent History Cardiac: No Pertinent History Respiratory: No Pertinent History Gastrointestinal: Hernia Repair Genitourinary: No Pertinent History Musculoskeletal: No Pertinent History Male Surgical History: No Pertinent History - Social History Smoking Status: Current every day smoker How long have you smoked: years Exposure to second hand smoke: Yes Alcohol Use: Socially Drug Use: none Patient Lives Alone: Yes Significant Family History: no pertinent family hx - Nursing Vital Signs Nursing Vital Signs: Initial Vital Signs Temperature 97.8 F 04/21/19 00:18 Pulse Rate 84 04/21/19 00:18 Respiratory Rate 18 04/21/19 00:18 Blood Pressure 128/75 04/21/19 00:18 O2 Sat by Pulse Oximetry 97 04/21/19 00:18 Pain Scale Pain Intensity 6 - Physical Exam General Appearance: mild distress, alert Eyes, Ears, Nose, Throat Exam: moist mucous membranes Neck Exam: non-tender, supple Cardiovascular/Respiratory Exam: chest non-tender, normal breath sounds, regular rate/rhythm, no respiratory distress Gastrointestinal/Abdominal Exam: non-tender, guarding Back Exam: normal inspection, No vertebral tenderness Hips Exam: bilateral: non-tender, normal inspection, normal range of motion, no evidence of injury Legs Exam: right leg: bone tenderness (pain right distal lower leg with palpation laterally), left leg: non-tender, normal inspection, no evidence of injury, bilateral leg: normal range of motion Knees Exam: bilateral knee: non-tender, normal inspection, normal range of motion, no evidence of injury Ankle Exam: right ankle: bone tenderness (pain lateral right ankle with palpation and movement), other (decreased range of motion right ankle secondary to pain), left ankle: non-tender, normal inspection, normal range of motion Foot Exam: bilateral foot: non-tender, normal inspection, normal range of motion , no evidence of injury DTR - Lower Extremities Exam: ankle (R): 2+, ankle (L): 2+ Neuro/Tendon Exam: normal sensation, normal motor functions Mental Status Exam: alert, oriented x 3, cooperative Skin Exam: normal color, warm, dry SpO2 Interpretation: normal (97%) SpO2: 97 - Course Nursing assessment & vital signs reviewed: Yes - Radiology Exams Right Ankle X-ray Interpretation: Interpreted by me (x-ray right ankle: No fracture no subluxation) Right Lower Leg X-ray Interpretation: Interpreted by me (X-ray right tibia/fibula: No fracture no subluxation.) Ordered Tests: Active Orders 24 hr Category Date Time Status Splint STAT Care 04/21/19 01:02 Active ANKLE (3 VIEWS) Stat Exams 04/21/19 00:35 Taken LOWER LEG Stat Exams 04/21/19 00:35 Taken Medication Summary Discontinued Medications Generic Name Dose Route Start Last Admin Trade Name Bhupinderq PRN Reason Stop Dose Admin Ketorolac Tromethamine 60 mg 04/21/19 00:35 04/21/19 00:40 Toradol 30 Mg Injection IM 04/21/19 00:36 60 mg STAT ONE Administration Ketorolac Tromethamine Confirm 04/21/19 00:39 Toradol 30 Mg Injection Administered 04/21/19 00:40 Dose 60 mg .ROUTE .Gather.md ONE - Progress Progress: improved Progress Note: 04/21/19 01:03 Patient given Toradol injection for pain will send home with a small amount of [place]. X-ray of the right ankle and right tib-fib negative fracture negative subluxation. Impression right ankle pain., Right ankle sprain. - Departure Departure Disposition: Home Clinical Impression: Right ankle pain Qualifiers: Chronicity: acute Qualified Code(s): M25.571 - Pain in right ankle and joints of right foot Right ankle sprain Qualifiers: Encounter type: initial encounter Involved ligament of ankle: unspecified ligament Qualified Code(s): S93.401A - Sprain of unspecified ligament of right ankle, initial encounter Condition: Fair Critical Care Time: No Referrals: DOCTOR,NO FAMILY [Primary Care Provider] - Additional Instructions: Return home. Ice and elevate right ankle 24-48 hours. Use air cast 72 hours longer if pain persists. [place] as prescribed. Followup with your family symptoms are worse no better in 48 hours or persist longer than one week. Return for acute distress or for severe symptoms. Prescriptions: Hydrocodone/APAP 5-325 Tab^^^ [[place] 5-325 Tablet^^^] 1 tab PO Q6HPRN PRN #10 tablet MDD 6 PRN Reason: right ankle pain
[2019-04-21 01:17] VITALS: BP 132/69; PULSE 80; O2SAT 98
--- NOTE | 2019-04-21 08:16 | XRAY ---
Indication: Pain and swelling following football injury. Comparison: None 2 views of the right lower leg obtained. No bony, articular, or soft tissue abnormalities.
--- NOTE | 2019-04-21 08:19 | XRAY ---
Indication: Pain and swelling following football injury. Comparison: None 3 views of the right ankle demonstrates anterior lateral soft tissue swelling. No other bony, articular, or soft tissue abnormalities.
== END 2019-04-21 01:17 | disposition home or self-care (01) ==
LOC: ED 00:11
DX: M25.571 Pain in right ankle and joints of right foot (principal); S93.401A Sprain of unspecified ligament of right ankle, initial encounter
CPT/HCPCS: 73590; 73610; 96372; 99284; J1885

== ENCOUNTER 2019-07-10 19:48 | Emergency (ER) | payer MEDICAID | END 2019-07-10 23:12 | disposition home or self-care (01) | LOC: ED 19:48 ==

== ENCOUNTER 2019-09-24 09:08 | Emergency (ER) | payer SELFPAY ==
--- NOTE | 2019-09-24 09:11 | ERPHSYRPT ---
- History of Present Illness Time Seen by Provider: 09/24/19 09:11 Source: patient Exam Limitations: no limitations Physician History: 29 y/o white male presents with 2 week h/o sore throat and associated dental pain for 2 to 3 days that is worsening. pt has nkda. Timing/Duration: gradual onset, weeks (2) ENT Location: throat, dental Prearrival Treatment: over the counter meds Associated Symptoms: sore throat, tooth pain Allergies/Adverse Reactions: No Known Drug Allergies Allergy (Verified 09/24/19 09:25) Hx Tetanus, Diphtheria Vaccination/Date Given: Yes Hx Influenza Vaccination/Date Given: No Hx Pneumococcal Vaccination/Date Given: No - Review of Systems Constitutional: No Symptoms Eyes: No Symptoms Ears, Nose, & Throat: Throat Pain, Other (dental pain) Respiratory: No Symptoms Cardiac: No Symptoms Abdominal/Gastrointestinal: No Symptoms Genitourinary Symptoms: No Symptoms Musculoskeletal: No Symptoms Skin: No Symptoms Neurological: No Symptoms Psychological: No Symptoms Endocrine: No Symptoms Hematologic/Lymphatic: No Symptoms Immunological/Allergic: No Symptoms All Other Systems: Reviewed and Negative - Past Medical History Pertinent Past Medical History: No Neurological History: No Pertinent History ENT History: No Pertinent History Cardiac History: No Pertinent History Respiratory History: No Pertinent History Endocrine Medical History: No Pertinent History Musculoskeletal History: No Pertinent History GI Medical History: Hernia History: No Pertinent History Psycho-Social History: No Pertinent History Male Reproductive Disorders: No Pertinent History Other Medical History: HYDROCELE - Past Surgical History Past Surgical History: Yes Neuro Surgical History: No Pertinent History Cardiac: No Pertinent History Respiratory: No Pertinent History Gastrointestinal: Hernia Repair Genitourinary: No Pertinent History Musculoskeletal: No Pertinent History Male Surgical History: No Pertinent History - Social History Smoking Status: Former smoker How long have you smoked: years Exposure to second hand smoke: Yes Alcohol Use: Socially Drug Use: none Patient Lives Alone: Yes Significant Family History: no pertinent family hx - Nursing Vital Signs Nursing Vital Signs: Initial Vital Signs Temperature 97.6 F 09/24/19 09:16 Pulse Rate 99 H 09/24/19 09:16 Respiratory Rate 20 09/24/19 09:16 Blood Pressure 143/92 09/24/19 09:16 O2 Sat by Pulse Oximetry 100 09/24/19 09:16 Pain Scale Pain Intensity 7 - Physical Exam General Appearance: no apparent distress, alert, anxiety Eye Exam: bilateral eye: normal inspection, PERRL, EOMI Ear Exam: bilateral ear: auricle normal Nasal Exam: normal inspection Throat Exam: dental tenderness, pharynx swelling, pharynx tenderness Neck Exam: normal inspection, non-tender, supple, full range of motion, trachea midline Cardiovascular/Respiratory Exam: chest non-tender, no respiratory distress Abdominal Exam: non-tender Neurologic Exam: alert, oriented x 3, cooperative, narcotics detective II-XII nml as tested Skin Exam: normal color, warm, dry SpO2 Interpretation: normal O2 Delivery: Room Air - Course Nursing assessment & vital signs reviewed: Yes - Progress Progress: unchanged Counseled pt/family regarding: diagnosis, need for follow-up - Departure Departure Disposition: Home Clinical Impression: Pain, dental, Pharyngitis Condition: Stable Critical Care Time: No Referrals: DOCTOR,NO FAMILY [Primary Care Provider] - Additional Instructions: drink plenty of fluids. add ibuprofen for pain. follow up with dentist for definitive care Prescriptions: Amoxicillin 500 mg Cap [Amoxil 500 mg] 500 mg PO TID #30 capsule Hydrocodone Bit/Acetaminophen [Hydrocodone-Acetaminophen Soln] 5 ml PO Q8H PRN # 120 ml PRN Reason: Moderate Pain
[2019-09-24 09:27] VITALS: BP 143/92; PULSE 99; O2SAT 100
== END 2019-09-24 09:55 | disposition home or self-care (01) ==
LOC: ED 09:08
DX: K08.89 Other specified disorders of teeth and supporting structures (principal); J02.9 Acute pharyngitis, unspecified
CPT/HCPCS: 99283

== ENCOUNTER 2020-04-22 21:04 | Emergency (ER) | payer SELFPAY ==
--- NOTE | 2020-04-22 21:10 | ERPHSYRPT ---
- History of Present Illness Time Seen by Provider: 04/22/20 21:10 Allergies/Adverse Reactions: No Known Drug Allergies Allergy (Verified 09/24/19 09:25) Hx Tetanus, Diphtheria Vaccination/Date Given: Yes Hx Influenza Vaccination/Date Given: No Hx Pneumococcal Vaccination/Date Given: No - Past Medical History Pertinent Past Medical History: No Neurological History: No Pertinent History ENT History: No Pertinent History Cardiac History: No Pertinent History Respiratory History: No Pertinent History Endocrine Medical History: No Pertinent History Musculoskeletal History: No Pertinent History GI Medical History: Hernia History: No Pertinent History Psycho-Social History: No Pertinent History Male Reproductive Disorders: No Pertinent History Other Medical History: HYDROCELE - Past Surgical History Past Surgical History: Yes Neuro Surgical History: No Pertinent History Cardiac: No Pertinent History Respiratory: No Pertinent History Gastrointestinal: Hernia Repair Genitourinary: No Pertinent History Musculoskeletal: No Pertinent History Male Surgical History: No Pertinent History - Social History Smoking Status: Former smoker How long have you smoked: years Exposure to second hand smoke: Yes Alcohol Use: Socially Drug Use: none Patient Lives Alone: Yes Significant Family History: no pertinent family hx - Departure Referrals: DOCTOR,NO FAMILY [Primary Care Provider] -
== END 2020-04-22 22:00 | disposition left against medical advice (07) ==
LOC: ED 21:04
DX: Z53.29 Procedure and treatment not carried out because of patient's decision for other reasons (principal)

== ENCOUNTER 2020-07-26 16:51 | Emergency (ER) | payer MEDICAID ==
[2020-07-26 17:13] VITALS: O2SAT 98
--- NOTE | 2020-07-26 18:02 | ERPHSYRPT ---
- History of Present Illness Time Seen by Provider: 07/26/20 17:55 Source: patient Exam Limitations: no limitations Patient Subjective Stated Complaint: R sided dental pain Triage Nursing Assessment: pt to ED c/o R upper dental pain and possible ab scess. states pain in mouth is common for him but swelling and more extreme pain started yesterday. rates 5/10 pain. noted swelling in upper R jaw and cheek. no SOB or diff swallowing, however pain increases with pain. Physician History: pt has hx of prior dental problems but has not seen dentist for this one going on a few days. swallowing OK neck supple and digastic soft floor of mouth soft without swelling; tender right upper cuspid with caries and carries throughout. percussion reproduces pain exactly Timing/Duration: gradual onset Severity: moderate ENT Location: dental Prearrival Treatment: over the counter meds Modifying Factors: Improves With: other (eating chewing) Associated Symptoms: denies symptoms Allergies/Adverse Reactions: No Known Drug Allergies Allergy (Verified 07/26/20 17:13) Hx Tetanus, Diphtheria Vaccination/Date Given: Yes Hx Influenza Vaccination/Date Given: Yes Hx Pneumococcal Vaccination/Date Given: No Immunizations Up to Date: Yes Travel Risk - International Travel Have you traveled outside of the country in past 3 weeks: No - Coronavirus Screening Are you exhibiting any of the following symptoms?: No Close contact with a COVID-19 positive Pt in past 14-21 Days: No - Review of Systems Constitutional: No Fever, No Chills Eyes: No Symptoms Ears, Nose, & Throat: Other (dental pain) Respiratory: No Cough, No Dyspnea Cardiac: No Chest Pain, No Edema, No Syncope Abdominal/Gastrointestinal: No Abdominal Pain, No Nausea, No Vomiting, No Diarrhea Genitourinary Symptoms: No Dysuria Musculoskeletal: No Back Pain, No Neck Pain Skin: No Rash Neurological: No Dizziness, No Focal Weakness, No Sensory Changes Psychological: No Symptoms Endocrine: No Symptoms Hematologic/Lymphatic: No Symptoms Immunological/Allergic: No Symptoms All Other Systems: Reviewed and Negative - Past Medical History Pertinent Past Medical History: Yes Neurological History: No Pertinent History ENT History: No Pertinent History Cardiac History: No Pertinent History Respiratory History: No Pertinent History Endocrine Medical History: No Pertinent History Musculoskeletal History: No Pertinent History GI Medical History: Hernia History: No Pertinent History Psycho-Social History: No Pertinent History Male Reproductive Disorders: No Pertinent History Other Medical History: HYDROCELE. frequent dental pain - Past Surgical History Past Surgical History: Yes Neuro Surgical History: No Pertinent History Cardiac: No Pertinent History Respiratory: No Pertinent History Gastrointestinal: Hernia Repair Genitourinary: No Pertinent History Musculoskeletal: No Pertinent History Male Surgical History: No Pertinent History - Social History Smoking Status: Current every day smoker How long have you smoked: years Exposure to second hand smoke: Yes Alcohol Use: Socially Drug Use: none Patient Lives Alone: Yes Significant Family History: no pertinent family hx - Nursing Vital Signs Nursing Vital Signs: Initial Vital Signs Temperature 97.6 F 07/26/20 17:07 Pulse Rate 118 H 07/26/20 17:07 Respiratory Rate 18 07/26/20 17:07 Blood Pressure 126/82 07/26/20 17:07 O2 Sat by Pulse Oximetry 98 07/26/20 17:07 Pain Scale Pain Intensity 5 - Physical Exam General Appearance: no apparent distress Eye Exam: bilateral eye: normal inspection, PERRL, EOMI Ear Exam: bilateral ear: auricle normal, canal normal, TM normal Nasal Exam: normal inspection Throat Exam: normal, pharynx normal, dental tenderness, No excessive drooling, No maxillary swelling, No pharynx swelling, No voice changes Neck Exam: normal inspection, non-tender, supple, full range of motion, trachea midline Cardiovascular/Respiratory Exam: chest non-tender, normal breath sounds, regular rate/rhythm, heart sounds normal, no respiratory distress Abdominal Exam: non-tender, soft Neurologic Exam: alert, oriented x 3, cooperative, optical glass inspector II-XII nml as tested, normal mood/affect, nml cerebellar function, nml station & gait, sensation nml Skin Exam: normal color, warm, dry SpO2 Interpretation: normal SpO2: 98 O2 Delivery: Room Air - Course Nursing assessment & vital signs reviewed: Yes - Progress Progress: improved, re-examined Counseled pt/family regarding: diagnosis, need for follow-up - Departure Departure Disposition: Home Clinical Impression: right upper dental abscess Condition: Good Critical Care Time: No Referrals: DOCTOR,NO FAMILY [Primary Care Provider] - Instructions: Tooth Abscess (DC), Tooth Decay, Adult (DC) Additional Instructions: see dentist this week to have tooth pulled and for followup; return meantime if not improving , vomiting, fever, increased swelling or other concerns use the pain pills given if needed for sleep tonight, otherwise use alleve or motrin Prescriptions: Cephalexin Mh 500 mg [Keflex 500 mg] 500 mg PO Q8H #30 capsule
[2020-07-26 18:12] VITALS: BP 129/78; PULSE 89
[2020-07-26] MEDS ORDERED: KEFLEX 500 MG PO ONE (18:16)
[2020-07-26] MEDS ORDERED: NORCO 5/325 MG PO ONE (18:17)
[2020-07-26] MEDS ORDERED: KEFLEX 500 MG ONE (18:19)
[2020-07-26] MEDS ORDERED: NORCO 5/325 MG ONE (18:20)
== END 2020-07-26 18:38 | disposition home or self-care (01) ==
LOC: ED 16:51
DX: K04.7 Periapical abscess without sinus (principal)
CPT/HCPCS: 99283; A9270-GY

== ENCOUNTER 2021-04-12 13:07 | Emergency (ER) | payer MEDICAID ==
[2021-04-12 13:44] VITALS: BP 127/94; PULSE 93; O2SAT 97
[2021-04-12] MEDS ORDERED: Bicillin L-A 1.2 Mu/2ML SYRINGE IM ONE ×2 (13:53→13:59)
[2021-04-12] MEDS ORDERED: TORAdol 30 mg Injection IM ONE (13:53)
[2021-04-12] MEDS ORDERED: TORAdol 30 mg Injection ONE (13:59)
--- NOTE | 2021-04-12 14:01 | ERPHSYRPT ---
- History of Present Illness Time Seen by Provider: 04/12/21 13:50 Source: patient Exam Limitations: no limitations Patient Subjective Stated Complaint: dental abcess on top right Triage Nursing Assessment: Pt brought self to the ER, vitals wnl, rates tooth/mouth/throat pain as 4/10, hx of dental abcesses but can't afford to go to the dentist, requesting an antibiotic Physician History: Patient is a 30-year-old male presents to emergency department with complaints of dental pain. Patient states that he has been experiencing chronic dental pain intermittently. Patient currently has pain in the right canine. Symptoms got worse over the past few days. Patient took 400 mg of Advil this morning. Patient states the pain is persistent. Pain rated 4 out of 10. No trauma. No fever. No headache. No nausea or vomiting. Symptoms are mild to moderate in intensity. Mastication and percussion reproduce symptoms. Patient states he is working on obtaining a visitation with an oral surgeon. Patient otherwise has no complaints. Timing/Duration: yesterday Severity: moderate Modifying Factors: Improves With: eating Associated Symptoms: denies symptoms Allergies/Adverse Reactions: No Known Drug Allergies Allergy (Verified 04/12/21 13:44) Hx Tetanus, Diphtheria Vaccination/Date Given: Yes Hx Influenza Vaccination/Date Given: Yes Hx Pneumococcal Vaccination/Date Given: No Travel Risk - International Travel Have you traveled outside of the country in past 3 weeks: No - Coronavirus Screening Are you exhibiting any of the following symptoms?: No Close contact with a COVID-19 positive Pt in past 14-21 Days: No - Vaccine Status Have you recieved a Covid-19 vaccination: No - Review of Systems Constitutional: No Symptoms, No Fever, No Chills Eyes: No Symptoms Ears, Nose, & Throat: No Symptoms Respiratory: No Symptoms, No Cough, No Dyspnea Cardiac: No Symptoms, No Chest Pain, No Edema, No Syncope Abdominal/Gastrointestinal: No Symptoms, No Abdominal Pain, No Nausea, No Vomiting, No Diarrhea Genitourinary Symptoms: No Symptoms, No Dysuria Musculoskeletal: No Symptoms, No Back Pain, No Neck Pain Skin: No Symptoms, No Rash Neurological: No Symptoms, No Dizziness, No Focal Weakness, No Sensory Changes Psychological: No Symptoms Endocrine: No Symptoms Hematologic/Lymphatic: No Symptoms Immunological/Allergic: No Symptoms All Other Systems: Reviewed and Negative - Past Medical History Pertinent Past Medical History: Yes Neurological History: No Pertinent History ENT History: No Pertinent History Cardiac History: No Pertinent History Respiratory History: No Pertinent History Endocrine Medical History: No Pertinent History Musculoskeletal History: No Pertinent History GI Medical History: Hernia History: No Pertinent History Psycho-Social History: No Pertinent History Male Reproductive Disorders: No Pertinent History Other Medical History: HYDROCELE. frequent dental pain - Past Surgical History Past Surgical History: Yes Neuro Surgical History: No Pertinent History Cardiac: No Pertinent History Respiratory: No Pertinent History Gastrointestinal: Hernia Repair Genitourinary: No Pertinent History Musculoskeletal: No Pertinent History Male Surgical History: No Pertinent History - Social History Smoking Status: Current every day smoker How long have you smoked: years Exposure to second hand smoke: Yes Alcohol Use: Socially Drug Use: none Patient Lives Alone: No Significant Family History: no pertinent family hx - Nursing Vital Signs Nursing Vital Signs: Initial Vital Signs Temperature 98.1 F 04/12/21 13:38 Pulse Rate 93 H 04/12/21 13:38 Blood Pressure 127/94 04/12/21 13:38 O2 Sat by Pulse Oximetry 97 04/12/21 13:38 Pain Scale Pain Intensity 4 - Physical Exam General Appearance: no apparent distress, alert Eye Exam: PERRL/EOMI, eyes nml inspection Ears, Nose, Throat Exam: normal ENT inspection, TMs normal, pharynx normal, moist mucous membranes, other (Carious teeth throughout. Right canine abscess observed. There is mild swelling at the nasolabial fold. Remaining oral exam is negative. No intraoral lesions. No sublingual masses. No signs of Mabel's angina. Uvula at midline. No FURNITURE POLISHER. No tongue swelling.) Neck Exam: normal inspection, non-tender, supple, full range of motion Respiratory Exam: normal breath sounds, lungs clear, No respiratory distress Cardiovascular Exam: regular rate/rhythm, normal heart sounds, normal peripheral pulses Gastrointestinal/Abdomen Exam: soft, normal bowel sounds, No tenderness, No mass Back Exam: normal inspection, normal range of motion, No CVA tenderness, No vertebral tenderness Extremity Exam: normal inspection, normal range of motion, pelvis stable Neurologic Exam: alert, oriented x 3, cooperative, normal mood/affect, nml cerebellar function, nml station & gait, sensation nml, No motor deficits Skin Exam: normal color, warm, dry, No rash Lymphatic Exam: No adenopathy SpO2 Interpretation: normal SpO2: 97 O2 Delivery: Room Air - Course Nursing assessment & vital signs reviewed: Yes Ordered Tests: Medication Summary Discontinued Medications Generic Name Dose Route Start Last Admin Trade Name Kimberly PRN Reason Stop Dose Admin Ketorolac Tromethamine 30 mg 04/12/21 13:53 Toradol 30 Mg Injection IM 04/12/21 13:54 STAT ONE Penicillin G Benzathine 1.2 mu 04/12/21 13:53 Bicillin L-A 1.2 Mu/2ml Syringe IM 04/12/21 13:54 STAT ONE - Progress Progress: improved Progress Note: Patient reassessed. Pain improved. Patient received a dose of Bicillin and Toradol IM. A prescription for Augmentin was forwarded the patient's pharmacy. Patient will picker packer his prescription today and start his oral antibiotics tomorrow. Patient will follow up with his dentist as discussed. Patient voices no other complaints or concerns at this time. He will take [id number] NSAIDs for pain control until advised otherwise by his oral surgeon. Patient given follow-up with Dr. Macdonald. Dr. Velasquez is our no doc for the day. 04/12/21 13:59 04/12/21 14:02 Counseled pt/family regarding: diagnosis, need for follow-up - Departure Departure Disposition: Home Clinical Impression: Dental abscess, Pain, dental, Carious teeth Condition: Stable Critical Care Time: No Referrals: PRASHANTH VELASQUEZ MD [ACTIVE STAFF] - Additional Instructions: Discharge/Care Plan ROSMERY LAUREN was seen on 04/12/21 in the Emergency Room. The patient was counseled regarding Diagnosis,Lab results, Imaging studies, need for follow up and when to return to the Emergency Room. Prescriptions given: Discharge Note I have spoken with the patient and/or caregivers. I have explained the patient's condition, diagnosis and treatment plan based on the information available to me at this time. I have answered the patient's and/or caregiver's questions and addressed any concerns. The patient and/or caregivers have as good understanding of the patient's diagnosis, condition and treatment plan as can be expected at this point. The vital signs have been stable. The patient's condition is stable and appropriate for discharge from the emergency department. The patient will pursue further outpatient evaluation with the primary care physician or other designated or consulting physician as outlined in the discharge instructions. The patient and/or caregivers are agreeable to this plan of care and follow-up instructions have been explained in detail. The patient and/or caregivers have received these instruction. The patient/and or caregivers are aware that any significant change in condition or worsening of symptoms should prompt an immediate return to this or the closest emergency department or call 911. Prescriptions: Amox Tr/Potass Clav. 875 mg [Augmentin 875-125 Tablet] 875 mg PO BID 7 Days #14 tablet
== END 2021-04-12 14:12 | disposition home or self-care (01) ==
LOC: ED 13:07
DX: K04.7 Periapical abscess without sinus (principal); K02.9 Dental caries, unspecified
CPT/HCPCS: 96372; 99283; J0561; J1885